=== PATIENT | male | born 1975 | race Caucasian/White ===

== ENCOUNTER 2021-06-21 06:36 | Emergency (ER) | payer BC ==
[2021-06-21] MEDS ORDERED: Aspirin 81 MG Tab.Chew PO ONE (07:02)
[2021-06-21 07:21] LABS: BLOOD UREA NITROGEN,BUN 18 mg/dL (7.0-18.0); CARBON DIOXIDE,CO2 24.9 mmol/L (21.0-32.0); CHLORIDE,CL 104 mmol/L (98-107); GLUCOSE RANDOM 131 mg/dL (74-106); POTASSIUM,K 3.7 mmol/L (3.5-5.1); SODIUM,NA 139 mmol/L (136-148)
--- NOTE | 2021-06-21 07:23 | EDM.PDOC ---
ED HPI GENERAL MEDICAL PROBLEM - General Chief Complaint: Chest Pain Stated Complaint: CHEST PAIN, SHORTNESS OF BREATH Time Seen by Provider: 06/21/21 07:01 Source of Information: Reports: Patient History Limitations: Reports: No Limitations - History of Present Illness INITIAL COMMENTS - FREE TEXT/NARRATIVE: 46M PMHx HTN presents for CP and hypertension. Patient notes that he was recently diagnosed with hypertension by his primary care physician in [place] and started on amlodipine 5 mg daily. Patient presents for multiple complaints. He states that when he woke up this morning he had some left anterior chest pain radiating down his left arm described as dull and achy. 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 He did trip on some gear that was laying on the floor of his hotel room causing him to fall and hit his chest and it seemed to make the pain worse. Afterwards he blew his nose and noted a large amount of blood. He was able to get the bleeding controlled prior to arrival. He noted that he began to feel panicky and thinks he may have had a panic attack. His chest pain continues and is unchanged. He denies ever having any shortness of breath. He states that he thinks his blood pressure is high which was confirmed at triage. He is not certain what his typical blood pressure is. He denies ever having any sort of cardiac work-up, never had a stress test, never had a cardiac cath. No personal history of cardiac pathology that he is aware of. He is uncertain about his family history. Patient is a cigarette smoker Left Chest Pain Score (Numeric/FACES): 4 - Related Data Allergies Allergy/AdvReac Type Severity Reaction Status Date / Time No Known Allergies Allergy Verified 06/21/21 06:44 Home Meds: Home Meds Lisinopril/Hydrochlorothiazide [Lisinopril-Hctz 20-25 mg Tab] 1 each PO DAILY #30 tablet 06/21/21 [Rx] amLODIPine [Norvasc] 06/21/21 [History] Past Medical History - Past Health History Medical/Surgical History: Denies Medical/Surgical History - Infectious Disease History Infectious Disease History: Reports: Chicken Pox Social & Family History - Family History Family Medical History: No Pertinent Family History - Tobacco Use Tobacco Use Status *Q: Current Every Day Tobacco User Years of Tobacco use: 10 Packs/Tins Daily: 1 - Caffeine Use Caffeine Use: Reports: Coffee - Recreational Drug Use Recreational Drug Use: No ED ROS GENERAL - Review of Systems Review Of Systems: Comprehensive ROS is negative, except as noted in HPI. ED EXAM, GENERAL - Physical Exam Exam: See Below Exam Limited By: No Limitations General Appearance: Alert, WD/WN, No Apparent Distress Ears: Hearing Grossly Normal Throat/Mouth: Normal Voice, No Airway Compromise Head: Atraumatic, Normocephalic Neck: Normal Inspection Respiratory/Chest: No Respiratory Distress, Lungs Clear, Normal Breath Sounds, No Accessory Muscle Use Cardiovascular: Normal Peripheral Pulses, Regular Rate, Rhythm, No Edema Extremities: Normal Inspection Neurological: Alert Psychiatric: Normal Affect, Normal Mood Skin Exam: Warm, Dry, Intact, Normal Color #1 Interpretation EKG Date: 06/21/21 Time: 06:41 Rhythm: NSR Rate (Beats/Min): 84 [place]: Normal P-Wave: Present QRS: Normal ST-T: Normal QT: Normal MN/PQ Interval: 172 EKG Interpretation Comments: no ischemic changes, incomplete RBBB and LAFB Course - Vital Signs Last Recorded V/S: Last Vital Signs Temp 98.6 F 06/21/21 06:45 Pulse 70 06/21/21 09:45 Resp 18 06/21/21 09:45 BP 189/129 H 06/21/21 09:45 Pulse Ox 97 06/21/21 09:45 - Orders/Labs/Meds Orders: Active Orders 24 hr Category Date Time Status Saline Lock Insert [OM.PC] Stat Oth 06/21/21 07:02 Ordered Labs: Laboratory Tests 06/21/21 06/21/21 06/21/21 Range/Units 06:43 06:45 07:07 WBC 5.35 (4.0-11.0) K/uL RBC 5.17 (4.50-5.90) M/uL Hgb 15.5 (13.0-17.0) g/dL Hct 44.2 (38.0-50.0) % MCV 85.5 (80.0-98.0) fL MCH 30.0 (27.0-32.0) pg MCHC 35.1 (31.0-37.0) g/dL RDW Std Deviation 40.2 (28.0-62.0) fl RDW Coeff of Rosalinda 13 (11.0-15.0) % Plt Count 258 (150-400) K/uL MPV 10.00 (7.40-12.00) fL Neut % (Auto) 51.4 (48.0-80.0) % Lymph % (Auto) 38.9 (16.0-40.0) % [place] % (Auto) 9.5 (0.0-15.0) % Eos % (Auto) 0.0 (0.0-7.0) % Baso % (Auto) 0.2 (0.0-1.5) % Neut # (Auto) 2.8 (1.4-5.7) K/uL Lymph # (Auto) 2.1 (0.6-2.4) K/uL [place] # (Auto) 0.5 (0.0-0.8) K/uL Eos # (Auto) 0.0 (0.0-0.7) K/uL Baso # (Auto) 0.0 (0.0-0.1) K/uL Nucleated RBC % 0.0 /100WBC Nucleated RBCs # 0 K/uL Sodium 139 (136-148) mmol/L Potassium 3.7 (3.5-5.1) mmol/L Chloride 104 (98-107) mmol/L Carbon Dioxide 24.9 (21.0-32.0) mmol/L BUN 18 (7.0-18.0) mg/dL Creatinine 1.4 H (0.8-1.3) mg/dL Est Cr Clr Drug Dosing 72.37 mL/min Estimated GFR (MDRD) 54.6 ml/min Glucose 131 H (74-106) mg/dL Calcium 8.6 (8.5-10.1) mg/dL Total Bilirubin 0.3 (0.2-1.0) mg/dL AST 9 L (15-37) IU/L ALT 33 (14-63) IU/L Alkaline Phosphatase 95 (46-116) U/L Troponin I < 0.050 (0.000-0.056) ng/mL Total Protein 8.0 (6.4-8.2) g/dL Albumin 4.1 (3.4-5.0) g/dL Globulin 3.9 (2.6-4.0) g/dL Albumin/Globulin Ratio 1.1 (0.9-1.6) SARS-CoV-2 RNA (GALEN) NEGATIVE (NEGATIVE) 06/21/21 Range/Units 09:24 WBC (4.0-11.0) K/uL RBC (4.50-5.90) M/uL Hgb (13.0-17.0) g/dL Hct (38.0-50.0) % MCV (80.0-98.0) fL MCH (27.0-32.0) pg MCHC (31.0-37.0) g/dL RDW Std Deviation (28.0-62.0) fl RDW Coeff of Rosalinda (11.0-15.0) % Plt Count (150-400) K/uL MPV (7.40-12.00) fL Neut % (Auto) (48.0-80.0) % Lymph % (Auto) (16.0-40.0) % [place] % (Auto) (0.0-15.0) % Eos % (Auto) (0.0-7.0) % Baso % (Auto) (0.0-1.5) % Neut # (Auto) (1.4-5.7) K/uL Lymph # (Auto) (0.6-2.4) K/uL [place] # (Auto) (0.0-0.8) K/uL Eos # (Auto) (0.0-0.7) K/uL Baso # (Auto) (0.0-0.1) K/uL Nucleated RBC % /100WBC Nucleated RBCs # K/uL Sodium (136-148) mmol/L Potassium (3.5-5.1) mmol/L Chloride (98-107) mmol/L Carbon Dioxide (21.0-32.0) mmol/L BUN (7.0-18.0) mg/dL Creatinine (0.8-1.3) mg/dL Est Cr Clr Drug Dosing mL/min Estimated GFR (MDRD) ml/min Glucose (74-106) mg/dL Calcium (8.5-10.1) mg/dL Total Bilirubin (0.2-1.0) mg/dL AST (15-37) IU/L ALT (14-63) IU/L Alkaline Phosphatase (46-116) U/L Troponin I < 0.050 (0.000-0.056) ng/mL Total Protein (6.4-8.2) g/dL Albumin (3.4-5.0) g/dL Globulin (2.6-4.0) g/dL Albumin/Globulin Ratio (0.9-1.6) SARS-CoV-2 RNA (GALEN) (NEGATIVE) Meds: Medications Discontinued Medications Generic Name Dose Route Start Last Admin Trade Name Chris PRN Reason Stop Dose Admin Aspirin 324 mg 06/21/21 07:02 06/21/21 07:14 Aspirin 81 Mg Tab.Chew PO 06/21/21 07:03 324 mg ONETIME ONE Administration Labetalol HCl 20 mg 06/21/21 08:05 06/21/21 08:23 Labetalol 100 Mg/20 Ml Mdv IVPUSH 06/21/21 08:06 20 mg ONETIME ONE Administration Protocol Labetalol HCl 20 mg 06/21/21 08:56 06/21/21 09:12 Labetalol 100 Mg/20 Ml Mdv IVPUSH 06/21/21 08:57 20 mg ONETIME ONE Administration Protocol - Re-Assessments/Exams Free Text/Narrative Re-Assessment/Exam: 06/21/21 08:08 Patient presents with chest pain and hypertension. Aspirin was given. EKG is nonischemic. Initial troponin is negative. Chest x-ray is unremarkable. Will give labetalol to try and further control blood pressure. Will get a repeat troponin and disposition patient. I did tell the patient that I would likely recommend that he stay in the hospital for further work-up. 06/21/21 08:58 BP with only slight improvement to 200s over 120s. Will trial additional 20 mg of labetalol. 06/21/21 10:16 Is improved after second dose of labetalol. Patient notes that he is no longer having any chest pain or discomfort. I did recommend the patient stay in the hospital to have all of this worked up further, however, he declines as he is not from this area and has an appointment with a recovery engineer in his hometown on June 28. Because patient has 2 times negative troponins and is chest pain-free I am comfortable letting him leave without signing AGAINST MEDICAL ADVICE. He seems to demonstrate good understanding of his health condition and agrees to return to the emergency department for any repeat episodes of chest pain or difficulty breathing. I will discharge him with an additional antihypertensive on top of his amlodipine. I advised him to take his blood pressure regularly so he can discuss with his doctor when he follows up if it is working well or not. Departure - Departure Time of Disposition: 10:17 Disposition: Home, Self-Care 01 Condition: Good Clinical Impression: Hypertension Qualifiers: Hypertension type: unspecified Qualified Code(s): I10 - Essential (primary) hypertension - Discharge Information Prescriptions: Lisinopril/Hydrochlorothiazide [Lisinopril-Hctz 20-25 mg Tab] 1 each PO DAILY #30 tablet Instructions: Hypertension, Adult Referrals: PCP,None [Primary Care Provider] - Forms: ED Department Discharge Additional Instructions: Your labs in the emergency department were unremarkable. Your blood pressure is quite elevated. I prescribed an additional medication that I sent to in [place] pharmacy which is located in [facility]. If you are having any chest pain or difficulty breathing please come immediately back to the emergency department so we can reassess you. Otherwise please keep your appointment for follow-up in June. The following information is given to patients seen in the emergency department who are being discharged to home. This information is to outline your options for follow-up care. We provide all patients seen in our emergency department with a follow-up referral. The need for follow-up, as well as the timing and circumstances, are variable depending upon the specifics of your emergency department visit. If you don't have a primary care physician on staff, we will provide you with a referral. We always advise you to contact your personal physician following an emergency department visit to inform them of the circumstance of the visit and for follow-up with them and/or the need for any referrals to a consulting speci alist. The emergency department will also refer you to a specialist when appropriate. This referral assures that you have the opportunity for follow-up care with a specialist. All of these measure are taken in an effort to provide you with optimal care, which includes your follow-up. Under all circumstances we always encourage you to contact your private physician who remains a resource for coordinating your care. When calling for follow-up care, please make the office aware that this follow-up is from your recent emergency room visit. If for any reason you are refused follow-up, please contact the [facility] Emergency Department at and asked to speak to the emergency department charge nurse. Please follow up with your primary care physician. If you do not have a primary care physician, see below: [facility] [id number], [place] [id number] [facility] [address] [place] [id number] [facility] [address], [place] [address] Sepsis Event Note (ED) - Focused Exam Vital Signs: Vital Signs Temp Pulse Resp BP Pulse Ox 06/21/21 09:45 70 18 189/129 H 97 06/21/21 09:16 71 18 207/132 H 97 06/21/21 08:49 67 18 202/134 H 97 06/21/21 08:29 70 18 196/128 H 96 06/21/21 08:22 68 18 190/128 H 97 06/21/21 07:53 78 20 248/161 H 95 06/21/21 06:45 98.6 F 85 18 256/162 H 95 - My Orders Last 24 Hours: My Active Orders 06/21/21 07:02 Saline Lock Insert [OM.PC] Stat - Assessment/Plan Last 24 Hours: My Active Orders 06/21/21 07:02 Saline Lock Insert [OM.PC] Stat
--- NOTE | 2021-06-21 08:03 | CR ---
HISTORY: Shortness of breath and chest pain. TECHNIQUE: One view of the chest. COMPARISON: No prior. FINDINGS: There is no focal lung infiltrate or pulmonary edema. No pneumothorax or pleural effusion. The cardiac size is prominent but exaggerated by the portable technique. IMPRESSION: 1. No lung infiltrate or pulmonary edema. 2. Cardiac size is prominent but exaggerated by the AP portable technique. Dictated by Petar Granda MD @ 06/21/2021 8:00:35 AM (Electronically Signed)
[2021-06-21] MEDS ORDERED: Labetalol 100 MG/20 ML MDV IVPUSH ONE ×2 (08:05→08:56)
== END 2021-06-21 10:33 | disposition home or self-care (01) ==
LOC: MW.ED 06:36
DX: I10 Essential (primary) hypertension (principal); R07.9 Chest pain, unspecified; Z79.899 Other long term (current) drug therapy; Z72.0 Tobacco use; Z20.822 Contact with and (suspected) exposure to COVID-19
CPT/HCPCS: 36415; 71045; 80053; 84484; 85025; 87635; 93005; 96374; 96376; 99285; A9270; J3490; U0002